=== PATIENT | female | born 1985 | race Caucasian/White ===

== ENCOUNTER 2018-11-24 21:08 | Outpatient (CLI) | payer MEDICAID ==
[~2018-11-24] VITALS: Ht 157.5 cm; Wt 66.6 kg
[2018-11-24 21:05] VITALS: Ht 157.5 cm; Wt 66.6 kg
[~2018-11-24 21:08] MED LIST: PREN1TAB62 PO
[2018-11-24 21:25] VITALS: BP 109/69; PULSE 98; RESP 17
[2018-11-24] MEDS ORDERED: ACET500C5 PO (21:42)
[2018-11-25] MEDS ORDERED: ACETAMINOPHEN 325 MG TAB PO ONE
--- NOTE | 2018-11-25 00:27 | PN ---
Triage Information Date/Time Reason for visit: fever, sore throat and ear pain Weeks of Gestation 20 weeks /Para Diabetes: none Hypertention: none Objective Vital Signs Date Temp Pulse Resp B/P (MAP) Pulse Ox O2 O2 Flow FiO2 Time Delivery Rate 11/24/18 101.4 23:46 11/24/18 98 17 109/69 Room Air 21:25 (82) Heart Rate: 150's Contractions: None Results/Medications Result Diagram: 11/24/18221611/24/182216 Results 24 hrs Laboratory Tests Test 11/24/18 21:15 11/24/18 22:17 Urine Color YELLOW Urine Clarity CLEAR Urine pH 7.0 Urine Specific [place] 1.011 Urine Ketones NEGATIVE Urine Nitrite NEGATIVE Urine Bilirubin NEGATIVE Urine Urobilinogen NEGATIVE Urine Leukocyte Esterase NEGATIVE Urine Hemoglobin NEGATIVE Urine Glucose 1+ H Urine Total Protein NEGATIVE White Blood Count 7.1 Red Blood Count 3.67 L Hemoglobin 12.4 Hematocrit 35.5 L Mean Corpuscular Volume 96.7 Mean Corpuscular Hemoglobin 33.8 H Mean Corpuscular Hemoglobin Concent 34.9 Red Cell Distribution Width 12.5 Platelet Count 222 Mean Platelet Volume 9.4 Immature Granulocytes % 0.400 Neutrophils % 84.3 H Lymphocytes % 8.0 L Monocytes % 6.0 Eosinophils % 1.0 Basophils % 0.3 Nucleated Red Blood Cells % 0.0 Immature Granulocytes # 0.030 Neutrophils # 6.0 Lymphocytes # 0.6 L Monocytes # 0.4 Eosinophils # 0.1 Basophils # 0.0 Nucleated Red Blood Cells # 0.0 Sodium Level 140 Potassium Level 3.8 Chloride Level 103 Carbon Dioxide Level 25 Anion Gap 12 Blood Urea Nitrogen 7 Creatinine 0.47 Est Glomerular Filtrat Rate mL/min > 60 Glucose Level 92 Calcium Level 9.5 Total Bilirubin 0.3 Direct Bilirubin 0.00 Indirect Bilirubin 0.3 Aspartate Amino Transf (AST/SGOT) 25 Alanine Aminotransferase (ALT/SGPT) 23 Alkaline Phosphatase 60 Total Protein 7.2 Albumin 4.0 Globulin 3.20 Albumin/Globulin Ratio 1.25 Disposition: Discharge Assessment/Plan upper respiratory infection Amoxicillin 500 mg PO TID x 10 days PAULINA ROE MD Nov 25, 2018 00:27
--- NOTE | 2018-11-25 00:43 | TRIAGE ---
OB Triage Datetime Report Generated by CPN: 11/25/2018 00:42 Datetime: 11/25/2018 00:17 Stage of : OB Triage Temperature Route: Oral Labor Evaluation Frequency: none Monitor Mode: External Datetime: 11/25/2018 00:00 Labor Evaluation Frequency: none Monitor Mode: External Datetime: 11/24/2018 23:28 Stage of : OB Triage Temperature Route: Oral Datetime: 11/24/2018 23:00 Labor Evaluation Frequency: none Monitor Mode: External Datetime: 11/24/2018 22:38 Contraction Comments: no contractions palpated Datetime: 11/24/2018 22:37 Pain Assessment Pain Scale: 0 Pain Presence: None/Denies Pain Type: N/A Datetime: 11/24/2018 22:03 Labor Evaluation Frequency: none Monitor Mode: External Datetime: 11/24/2018 21:30 Heart Rate Monitor Mode: Doppler Comments: heart beat ranges from 164bpm-175bpm. Datetime: 11/24/2018 21:25 Stage of : OB Triage Assessment Type: Triage Maternal Assessment Level of Consciousness: Fully Conscious DTR's/Clonus: DTRs 2+; No Clonus Headache: Denies Blurred Vision: No Respiratory Effort: Unlabored; Regular Rhythm; Equal Expansion Breath Sounds, Left: Clear and Equal Breath Sounds, Right: Clear and Equal Nausea/Vomiting: Denies RUQ Epigastric Pain: Denies Lower Extremities Edema: None Degree: None Upper Extremities Edema: None Degree: None Facial Edema: None Temperature Route: Oral Fall Risk Assessment History of Falling: (0) No Secondary Diagnosis: (0) No Ambulatory Aid: (0) Bedrest/Nurse Assist IV Therapy: (0) No Gait: (0) Normal/Bedrest/Immobile Mental Status: (0) Oriented to Own Ability Fall Score: 0 Fall Risk Score Definition: No Risk: No action required Comments: Patient states she feels active movement. Pain Assessment Pain Scale: 4 Pain Presence: Intermittent Pain Type: Cramping Pain Location: Abdomen Pain Relief Measures: Comfort Measures Datetime: 11/24/2018 21:24 Monitor Mode: External Resting Tone [place]: Relaxed Contraction Comments: No contractions palpted Datetime: 11/24/2018 21:05 Time of Arrival: 11/24/2018 21:05 EGA: 20.1 Arrived By: Ambulatory Arrived From: Home Chief Complaint: Fever 104F at home, sore throat, abdominal cramping Movement: Present Contractions: Denies/Absent Rupture of Membranes: Denies Vaginal Bleeding: None Vaginal Discharge: Denies Recent Sexual Intercouse: Denies Abdominal Trauma: Not Applicable Patient Complaints: Cramping; Fever Time Provider Notified: 11/24/2018 22:03 Provider Notified: Dr. Moses Initial Plan: Doppler, TOCO, Vital signs
== END 2018-11-25 00:33 | disposition home or self-care (01) ==
LOC: OBT 21:08 → L-D 21:09 → OBT 11-25 00:33
PROVIDERS: ATTEND Obstetrics & Gynecology
DX: O98.512 Other viral diseases complicating pregnancy, second trimester (principal); Z3A.20 20 weeks gestation of pregnancy; J06.9 Acute upper respiratory infection, unspecified
CPT/HCPCS: 76815; 76817; 80053; 81003; 85025; 87086; Z7500; Z7610; G0463

== ENCOUNTER 2019-04-07 04:50 | Inpatient (IN) | payer MEDICAID ==
[~2019-04-07] VITALS: Ht 157.5 cm; Wt 76.2 kg
[~2019-04-07 04:50] MED LIST changes: +ACET500C5 PO
[2019-04-07 05:30] VITALS: BP 115/82; PULSE 73; RESP 18
[2019-04-07] MEDS ORDERED: CARBOPROST 250 MCG INJ IM PRN ×2 (05:30→17:00)
[2019-04-07] MEDS ORDERED: OXYTOCIN 30 UNITS/LR 500 ML IV PRN ×2 (05:30→17:00)
[2019-04-07] MEDS ORDERED: METHYLERGONOVINE 0.2 MG INJ IM PRN ×2 (05:30→17:00)
[2019-04-07] MEDS ORDERED: CEFAZOLIN 2 GM/50 ML (PMX) 50 ML IVPB SCH (05:30)
[2019-04-07] MEDS ORDERED: MISOPROSTOL 200 MCG TAB PR PRN ×2 (05:30→17:00)
[2019-04-07] MEDS: LACTATED RINGER'S 1,000 ML IV SCH ×3 (05:44→21:12)
[2019-04-07 05:53] VITALS: Ht 157.5 cm; Wt 76.2 kg
--- NOTE | 2019-04-07 07:12 | PREAC ---
Date/Time of Note Date/Time of Note DATE: 04/07/19 TIME: 07:11 Anesthesia Eval and Record Evaluation Time Pre-Procedure Interview DATE: 04/07/19 TIME: 07:11 Age 33 Sex female NPO: 8 hrs Preoperative diagnosis previous c/s Planned procedure repeat c/s Past Medical History Past Medical History: Includes GI: Obesity Surgery & Anesthesia Issues No known issue Meds Anticoagulation: No Beta Tamar within 24 hr: No Reason Beta Tamar not given: Pt. not on B-Tamar Reported Medications Acetaminophen* (Tylophen*) 500 Mg Capsule, 1000 MG PO Q6H PRN for FEVER, TAB 11/24/18 Vit-Iron Fumarate-FA ( Vitamin Tablet) 1 Each Tablet, 1 TAB PO DAILY, TAB 09/20/14 Current Medications Lactated Ringer's 1,000 ml @ 125 mls/hr Q8H IV Last administered on 04/07/19at 05:44; Admin Dose 125 MLS/HR; Start 04/07/19 at 05:12 Cefazolin Sodium/ Dextrose 50 ml @ 100 mls/hr ONCE IVPB ; Start 04/07/19 at 05:30 Oxytocin/Lactated Ringer's 500 ml @ 125 mls/hr POST IV ; Start 04/07/19 at 05:30 Oxytocin/Lactated Ringer's 500 ml @ 0 mls/hr ONCE PRN IV .VAGINAL BLEEDING; Start 04/07/19 at 05:30 Methylergonovine Maleate (Methergine) 0.2 mg ONCE PRN IM .VAGINAL BLEEDING; Start 04/07/19 at 05:30 Carboprost Tromethamine (Hemabate) 250 mcg ONCE PRN IM .VAGINAL BLEEDING; Start 04/07/19 at 05:30 Misoprostol (Cytotec) 1,000 mcg ONCE PRN [place] .VAGINAL BLEEDING; Start 04/07/19 at 05:30 Meds reviewed: Yes Allergies Coded Allergies: No Known Allergy (Unverified , 11/24/18) Allergies Reviewed: Yes Labs/Studies Labs Reviewed: Reviewed by anesthesiologist Result Diagram: 04/07/19 0520 Laboratory Tests 04/07/19 05:20 test: Positive Pre-procedure Exam Last vitals Vital Signs Date Temp Pulse Resp B/P (MAP) Pulse Ox O2 O2 Flow FiO2 Time Delivery Rate 04/07/19 98.2 73 18 115/82 Room Air 05:30 (93) Airway: Adequate mouth opening, Adequate thyromental dist Mallampati: Mallampati II Teeth: Normal Lung: Normal Heart: Normal ASA Physical Status ASA physical status: 2 Emergency: None Planned Anesthetic Neuraxial: Spinal Planned Pain Management Sub-arachniod narcotics Pre-operative Attestations Prior to commencing anesthesia and surgery, the patient was re-evaluated, there was verification of: *The patient's identity *The results of appropriate recent lab work and preoperative vital signs *The above evaluation not changing prior to induction *Anesthetic plan, risk benefits, alternative and complications discussed with patient/family; questions answered; patient/family understands, accepts and wishes to proceed. TROY LAUREN Apr 07, 2019 07:12
[2019-04-07] MEDS ORDERED: FENTAnyl 50 MCG/ML VIAL IV PRN ×3 (07:30)
[2019-04-07] MEDS ORDERED: ONDANSETRON 4 MG INJ IV PRN ×2 (07:30)
[2019-04-07] MEDS ORDERED: DIPHENHYDRAMINE 50 MG INJ IV PRN ×2 (07:30)
[2019-04-07] MEDS ORDERED: METOCLOPRAMIDE 10 MG INJ IV PRN (07:30)
[2019-04-07] MEDS ORDERED: HYDROmorphONE 1 MG/5 ML IV SYRINGE IV PRN ×3 (07:30)
[2019-04-07] MEDS ORDERED: NALOXONE (0.4 MG/ML) INJ IV PRN ×2 (07:30→17:00)
[2019-04-07] MEDS ORDERED: KETOROLAC 30 MG INJ IV PRN ×2 (07:30)
[2019-04-07] MEDS ORDERED: HYDROmorphONE 0.5 MG/0.5 ML SYG IV PRN ×2 (07:30)
[2019-04-07] MEDS ORDERED: ALBUTEROL 0.083% (NEB) 2.5 MG/3 ML AMP HHN PRN (07:30)
[2019-04-07] MEDS ORDERED: morphine SULFATE/PF (10 MG/10 ML) INJ ONE (08:33)
[2019-04-07] MEDS ORDERED: PHENYLephrine (100 MCG/ML) 10ML SYG ONE (08:33)
[2019-04-07] MEDS ORDERED: OXYTOCIN 30 UNITS/LR 500 ML BAG IV ONE (08:33)
[2019-04-07] MEDS ORDERED: EPHEDrine 25 MG/5 ML SYG ONE (08:33)
--- NOTE | 2019-04-07 08:48 | HP ---
Date/Time of Note Date/Time of Note DATE: 04/07/19 TIME: 08:45 OB - History Hx of Present Free Text/Dictation 33 years old -0-0-3 with previous delivery at 39 oh weeks desires repeat delivery. She declined TOLAC. She states good movement. She denies nausea, vomiting, shortness of breath, chest pain, headache, visual changes, vaginal bleeding or LOF. Chief Complaint: Scheduled for repeat delivery Estimated Due Date: Apr 14, 2019 : 4 Para: 3 Spontaneous : 0 Therapeutic : 0 Care: Good Care Ultrasounds: Normal mid trimester US Obstetrical Complications: None Medical Complications: None Past Family/Social History * Past Medical, Surgical, Family and Obstetric Histories reviewed from chart. Blood Type: B+ Rubella: immune RPR/VDRL: Negative GBS Status: Negative HBsAG: Negative OB Admission Exam Vital Signs Vital Signs Vital Signs Date Temp Pulse Resp B/P (MAP) Pulse Ox O2 O2 Flow FiO2 Time Delivery Rate 04/07/19 98.2 73 18 115/82 Room Air 05:30 (93) Physical Exam HEENT: WNL Heart: Rhythm Normal Lungs: Clear Abdomen: WNL Extremities: Normal Membranes: Intact Heart Rate: 140's Accelerations: Accelerations Present Decelerations: No Decelerations Varibility: Moderate Contractions on Admission: None Last 72 hours Lab Results CBC & BMP 04/07/19 05:20 OB Assessment/Plan Other plan: 33 years old 4 para 3-0-0-3 with single intrauterine at 39 weeks with previous delivery desires repeat delivery. She declined TOLAC -FHR: Category I -Continuous EFM, toco -CBC, blood type and screen -Please see the orders -B+/Rubella: Immune -GBS: Negative The risk of delivery including but not limited to bleeding, infection, injury to other organs (bowel, bladder, ureter, vessels, nerves), injury to fetus, blood transfusion, blood transfusion related infection, risk of anesthesia, adhesion, needs for future , removal of uterus or any other indicated surgery was discussed with the patient and her family. She expressed understanding. All of her questions were answered. She signed the informed consent. PHYSICIAN'S VERIFICATION OF INFORMED CONSENT The patient and her were counseled regarding the procedure, its indications, risks, potential complications and alternatives and any questions were answered. Consent was obtained. PLANNED PROCEDURE/TREATMENT: delivery with possible using vacuum/forceps and any other indicated surgery PHYSICIAN'S VERIFICATION OF INFORMED CONSENT FOR BLOOD TRANSFUSION: There is a reasonable possibility that blood transfusion will be necessary as a result of the patient's procedure. I have discussed the following with the patient/patient's legal liability claims representative: An explanation of the benefits and risks of the transfusion of blood or blood products and the possible alternatives. All questions have been answered to the patient's satisfaction. INFORMED CONSENT:The patient has been informed of: The nature of the proposed care, treatment, services, medications, interventions or procedures. Potential benefits, risks or side effects, including potential problems related to recuperation. The likelihood of achieving care treatment and service goals. Reasonable alternatives to the proposed care, treatment and service. The relevant risks, benefits and side effects related to alternatives, including the possible results of not receiving care, treatment and services. When indicated, any limitations on the confidentiality of information learned from or about the patient. If appropriate, the risks, benefits and alternatives of the drugs to be used for sedation/analgesia including moderate sedation. If appropriate, patient has been provided information on the risks, benefits and alternatives to the transfusion of blood and/or blood products. If appropriate, patient has been provided information regarding the [place] Blood Act. JANELLE BRADY Apr 07, 2019 08:48
[2019-04-07] MEDS ORDERED: ONDANSETRON 4 MG INJ ONE (08:49)
[2019-04-07] MEDS ORDERED: FENTAnyl 50 MCG/ML VIAL ONE (09:33)
[2019-04-07] MEDS: OXYTOCIN 30 UNITS/LR 500 ML IV SCH ×2 (10:01→14:07)
--- NOTE | 2019-04-07 10:20 | PAC ---
Date/Time of Note Date/Time of Note DATE: 04/07/19 TIME: 10:20 Post-Anesthesia Notes Post-Anesthesia Note Last documented vital signs Vital Signs Date Temp Pulse Resp B/P (MAP) Pulse Ox O2 O2 Flow FiO2 Time Delivery Rate 04/07/19 98.2 73 18 115/82 Room Air 05:30 (93) Activity: WNL Respiratory function: WNL Cardiovascular function: WNL Mental status: Baseline Pain reasonably controlled: Yes Hydration appropriate: Yes Nausea/Vomiting absent: Yes TROY LAUREN Apr 07, 2019 10:20
--- NOTE | 2019-04-07 12:55 | OPR ---
Operative Report Planned Procedure Procedure date Apr 07, 2019 Procedure(s) Repeat low transverse delivery Performed by see signature line [employer] Instructor: PAULINA ROE MD Anesthesiologist: TROY LAUREN Pre-procedure diagnosis 33 years old 4 para 3-0-0-3 with single intrauterine at 39 weeks with previous delivery desires repeat delivery. She declined TOLAC [id number] Anesthesia Type: Lzbll9w spinal Post-Procedure Post-procedure diagnosis - Single intrauterine at 39 weeks - Previous delivery desires repeat delivery - 4 cm window on lower uterine segment Findings 1. Normal uterus except for 4 cm window on lower uterine segment. Normal fallopian tubes and ovaries 2. Viable female in cephalic presentation. 8 at one minute and 9 3700 g, 8 pounds 3 ounces in 5 minutes. Weight: 3700 g, 8 pounds 3 ounces. Time of delivery: 09:05 3. Placenta with three vessel cord 4. Amniotic fluid - Clear Estimated Blood Loss: 600 - 700 mls Specimen(s) none Grafts/Implant(s) none Complication(s) none Pt Condition post procedure: stable Disposition: PACU Procedure Description INDICATION AND HISTORY: A 33 years old 4 para 3-0-0-3 with single intrauterine at 39 w eeks with previous delivery desires repeat delivery. She declined TOLAC. The risk of delivery including but not limited to bleeding, infection, injury to other organs (bowel, bladder, ureter, vessels, nerves), injury to fetus, blood transfusion, blood transfusion related infection, risk of anesthesia, adhesion, needs for future , removal of uterus or any other indicated surgery was discussed with the patient and her family. She expressed understanding. All of her questions were answered. She signed the informed consent. DESCRIPTION OF OPERATION: The patient was taken to the operating room, where she was identified and the procedure was verified. The patient received two gram of Ancef 30 minutes prior to surgery. Spinal anesthesia was placed anesthesiologist. The patient placed in the dorsal supine position with a left tilt. The heart rate was 130 bpm. The patient was then prepped and draped in the normal sterile fashion. A Pfannenstiel skin incision was made and carried down to the fascia with knife. The fascia was incised in the midline and the fascial incision was carried later ally with Warner scissors. The superior portion of the fascial incision was then grasped with Maury clamps and tented up and dissected off the underlying rectus muscle with sharp dissection. The lower portion of the fascial incision was then made in a similar fashion. The rectus muscle was and the peritoneum was entered. The peritoneal incision was then stretched and a bladder blade was inserted. Then, an incision was made in the lower uterine segment above the 4 cm window in a transverse fashion with a knife and extended bluntly. The was delivered atraumatically in cephalic presentation with the above findings. The umbilical cord was clamped and cut. The neonatology resuscitation team was present and the baby was handed to them. A cord blood sample was obtained for further evaluation. The placenta and membrane, which appeared normal were Removed. The uterus was exteriorized and cleared of all clot and debris. The uterus was then closed in a two layer fashion with 0- Monocryl. At the time of closure, hemostasis was noted. The gutters were irrigated. The peritoneum was reapproximated with 3-0 Vicryl. The muscle was reapproximated with 3-0 Vicryl. The fascia was approximated with 0-Vicryl in a running fashion. The subcutaneous tissue was re approximated with 3-0 vicryl. The skin was closed with 4-0 Monocryl. All instruments, sponges and needle counts were correct x3. The patient tolerated the procedure well. She transferred to the recovery room in stable condition. JANELLE BRADY Apr 07, 2019 12:55
[2019-04-07 15:00] VITALS: BP 115/68; PULSE 79; RESP 18
[2019-04-07 16:00] VITALS: BP 113/69; PULSE 84; RESP 19
[2019-04-07] MEDS ORDERED: OXYTOCIN 30 UNITS/LR 500 ML IV SCH (16:40)
[2019-04-07] MEDS ORDERED: METHYLERGONOVINE 0.2 MG TAB PO PRN (17:00)
[2019-04-07] MEDS ORDERED: MAGNESIUM HYDROXIDE 30ML CUP PO PRN (17:00)
[2019-04-07] MEDS ORDERED: LANOLIN HPA 1 PKT TOP PRN (17:00)
[2019-04-07] MEDS: DEXTROSE 5%-LR 1,000 ML IV SCH (19:36)
[2019-04-07 19:40] VITALS: BP 111/74; PULSE 78; RESP 19
[2019-04-07] MEDS: SENNA/DOCUSATE NA (8.6MG/50MG) TAB PO SCH (21:53)
[2019-04-07 23:40] VITALS: BP 110/65; PULSE 90; RESP 19
[2019-04-08] MEDS: DEXTROSE 5%-LR 1,000 ML IV SCH ×2 (00:40→08:40)
[2019-04-08 03:40] VITALS: BP 104/63; PULSE 85; RESP 18
[2019-04-08] MEDS: LACTATED RINGER'S 1,000 ML IV SCH ×2 (05:37→13:12)
[2019-04-08] MEDS: IBUPROFEN 800 MG TAB PO SCH ×3 (06:00→22:00)
[2019-04-08 07:30] VITALS: BP 106/64; PULSE 67; RESP 18
--- NOTE | 2019-04-08 07:52 | PN ---
Date/Time of Note Date/Time of Note DATE: 04/08/19 TIME: 07:52 OB Subjective Subjective Subjective Subjective: Tolerating regular diet. Greenberg removed ~ 0400. Vaginal bleeding within normal limits. Breast feeding. Hosptial day: 2 Mode of delivery: Objective: Vital signs: 104/63 H/H: 12/36 General: No apparent distress Breast: Normal Fundus: 2 fingerbreadths below the umbilicus Extremities: Nontender to palpation Incision: C/D/I Assessment/plan: 1. day 1 from delivery-routine pp care. incentive spiromter. OB Objective Objective Objective Vital Sign - Last 24 Hours 04/07/19 04/07/19 04/07/19 04/07/19 15:00 16:00 19:40 23:40 Temp 98.4 98.7 98.4 98.0 Pulse 79 84 78 90 Resp 18 B/P (MAP) 115/68 (84) 113/69 (84) 111/74 (86) 110/65 (80) Pulse Ox 100 97 97 O2 Delivery Room Air Room Air Room Air Room Air 04/08/19 03:40 Temp 98.1 Pulse 85 Resp 18 B/P (MAP) 104/63 (77) Pulse Ox 98 O2 Delivery Room Air Intake and Output 04/07/19 04/07/19 04/08/19 1515:00 23:00 07:00 IntakeIntake Total 750 ml 675 ml 500 ml OutputOutput Total 3181 ml 125 ml 1700 ml BalanceBalance -2431 ml 550 ml -1200 ml Laboratory Tests Test 04/07/19 05:20 04/08/19 06:30 Hematocrit 39.7 % 36.4 % Hemoglobin 13.8 g/dl 12.4 g/dl Platelet Count 167 10^3/UL 141 10^3/UL White Blood Count 9.1 10^3/ul 7.4 10^3/ul DEMARIO DANIELS MD Apr 08, 2019 07:52
[2019-04-08] MEDS: SENNA/DOCUSATE NA (8.6MG/50MG) TAB PO SCH ×2 (10:32→20:43)
[2019-04-08] MEDS ORDERED: DIPHTH/TET/ACEL PERTUSS (ADULT) 0.5 ML VIAL IM* ONE (11:00)
[2019-04-08] MEDS ORDERED: HYDROCODONE/APAP (5/325) TAB NGT PRN (11:00)
[2019-04-08 12:08] VITALS: BP 108/65; PULSE 71; RESP 18
[2019-04-08] MEDS: HYDROCODONE/APAP (5/325) TAB GTB SCH ×2 (14:00→22:00)
[2019-04-08 16:17] VITALS: BP 107/68; PULSE 65; RESP 18
[2019-04-08 20:00] VITALS: BP 105/71; PULSE 71; RESP 19
[2019-04-09 03:35] VITALS: BP 108/69; RESP 18
[2019-04-09] MEDS: HYDROCODONE/APAP (5/325) TAB GTB SCH ×2 (05:28→14:00)
[2019-04-09] MEDS: IBUPROFEN 800 MG TAB PO SCH ×3 (05:28→15:04)
[2019-04-09 07:30] VITALS: BP 107/66; PULSE 68; RESP 18
[2019-04-09] MEDS: SENNA/DOCUSATE NA (8.6MG/50MG) TAB PO SCH (11:45)
[2019-04-09 16:08] VITALS: BP 111/68; PULSE 77; RESP 18
--- NOTE | 2019-04-09 17:05 | PD.PPDC ---
[employer]OFESSIONAL [employer]LEY[employer]ALL [employer]ER Discharge Instruction Diagnosis [id number] Final Diagnosis: Ktnul8e S?P repeat c/s Condition [id number] Patient Condition: Mlyue4p Stable Diet [place]0Nk Diet: Aghod7o Resume Regular Diet Activity/Restrictions [id number] Activity: Ezbcd5x May Shower Xmpiw5Ny Restrictions: Gglaq9f No Lifting No Sexual Activity Nothing in the Vagina No [place] No Tampons, douche Wound/Drain Care Instructions [id number] Wound/Drain Care Instructions: Vupvt0o Wash with soap and water Keep clean and dry Follow-up Follow-up with Physician: 2, Week/Weeks Return to clinic for [id number] PHYSICIAN OFFICE CLIN ASST Instructions: Nmece1g Fever greater than 101 Chills Worsening abdominal pain Excessive Vaginal Bleeding More than 2 pads per hour Unable to tolerate diet Nwffy9Jh OB Instructions: Jbtgi3v Breast Tenderness Depression Blurried Vision Headache Yebik9Ca Surgical Instructions: Stbiy8f Incisional Drainage Incisional Redness CHELSEA PLAZA MD Apr 09, 2019 17:05
--- NOTE | 2019-04-09 17:09 | DS ---
Date/Time of Note Date/Time of Note DATE: 04/09/19 TIME: 17:07 Obstetrical Discharge Record Final Diagnosis Final Diagnosis: Term delivered Section Section: Repeat Complications Augmentation: No Induction: No Rupture of Membranes: No Condition on Discharge Physical Assessment Last Vitals: vss afebrile Voiding: Yes Bowel Movement: No Breast: Soft, non-tender Fundus: Firm Abdomen and Incision: abdomen soft wound dry Episiotomy: n/a Calf Tenderness: No Patient Condition: Stable CHELSEA PLAZA MD Apr 09, 2019 17:09
[2019-04-10] MEDS ORDERED: MEASLES,MUMPS,RUBELLA VACCINE INJ SC* ONE (09:00)
[2019-04-10] MEDS ORDERED: DIPHTH/TET/ACEL PERTUSS (ADULT) 0.5 ML VIAL IM* ONE (09:00)
--- NOTE | 2019-04-10 18:38 | DELSUM ---
Delivery Summary A-C Datetime Report Generated by CPN: 04/10/2019 18:37 DELIVERY PERSONNEL Waiter/Waitress Cocktail Lounge: Yobe, Reinaldo MATERNAL INFORMATION Delivery Anesthesia: Spinal Medications in Delivery: see anesthesia records Delivery QBL (ml): 600 Placenta Cultured: No Maternal Complications: None LABOR SUMMARY EDC: 04/14/2019 00:00 No. Babies in Womb: 1 Attempted: No Labor Anesthesia: None LABOR INFORMATION Group B Beta Strep: Negative Antibiotics # of Doses: 1 Antibiotics Time of Last Dose: 04/07/2019 08:57 Steroids Given: None Reason Steroids Not Administered: Not Applicable MEMBRANES Membranes Rupture Method: Artificial Rupture of Membranes: 04/07/2019 09:04 Length of Rupture (hr): 0.02 Amniotic Fluid Color: Clear Amniotic Fluid Amount: Moderate Amniotic Fluid Odor: None STAGES OF LABOR Stage 3 hr: 0 Stage 3 min: 2 CSECTION DELIVERY Primary Indication: Repeat Elective Secondary Indication: N/A CSection Urgency: Elective CSection Incidence: Repeat Labor: No Labor Elective: N/A CSection Incision: Lower Uterine Transverse BABY A INFORMATION Infant Delivery Date/Time: 04/07/2019 09:05 Method of Delivery: Born in Route : No : N/A Forceps: N/A Vacuum Extraction: N/A Shoulder Dystocia : No SHOULDER DYSTOCIA BABY A Infant Delivery Date/Time: 04/07/2019 09:05 PRESENTATION/POSITION BABY A Presentation: Cephalic Cephalic Presentation: N/A Breech Presentation: N/A PLACENTA INFORMATION BABY A Placenta Delivery Time : 04/07/2019 09:07 Placenta Method of Delivery: Manual Removal Placenta Status: Delivered SCORES BABY A Heart Rate 1 min: >100 bpm Resp Effort 1 min: Good Cry Reflex Irritability 1 min: Cough/Sneeze/Pulls Away Muscle Tone 1 min: Active Motion Color 1 min: Blue/Pale Resuscitation Effort 1 min: Tactile Stimulation SCORE 1 MIN: 8 Heart Rate 5 min: >100 bpm Resp Effort 5 min: Good Cry Reflex Irritability 5 min: Cough/Sneeze/Pulls Away Muscle Tone 5 min: Active Motion Color 5 min: Body [place], Extremit Blue Resuscitation Effort 5 min: Tactile Stimulation SCORE 5 MIN: 9 INFORMATION BABY A Gestational Age at Delivery: 39.0 Gestational Status: Full Term- 39- 40.6 Weeks Outcome : Liveborn, with signs of life Condition : Stable Infant Sex: Female IDENTIFICATION/MEDS BABY A ID Band Number: [id number] ID Band Location: Right Leg; Left Arm Sensor Applied: Yes Sensor Number: [id number] Sensor Location : Cord Clamp Vitamin K Given : Not Given Erythromycin Given: Not Given WEIGHT/LENGTH BABY A Birthweight (gm): 3700 Weight (lb): 8 Weight (oz): 3 Length (in): 20.50 Infant Length (cm): 52.07 CORD INFORMATION BABY A No. Cord Vessels: 3 Nuchal Cord : N/A Cord Blood Taken: Yes Infant Suction: Mouth; Nose ASSESSMENT BABY A Complications: None Physical Findings at Delivery: Within Normal Limits Respirations: Appears Normal [place] Cutter/ALS Called : No Care By: RN _ RT Transferred To: Remains with Mother
--- NOTE | 2019-04-22 19:45 | CONS ---
Consultation Date/Type/Reason Admit Date/Time Apr 07, 2019 at 04:50 Initial Consult Date 04/08/19 Type of Consult anesthesia Reason for Consultation duramorph f/u Date/Time of Note DATE: 04/22/19 TIME: 19:44 24 HR Interval Summary Free Text/Dictation Pt seen and examined on 04/08/19 was POD#1 s/p repeat c/s. Pt received spinal duramorph for post-op pain control. She stated she had no pain. TROY LAUREN Apr 22, 2019 19:45
== END 2019-04-09 18:37 | disposition home or self-care (01) | DRG 788 ==
LOC: L-D 04:50 → PP1 14:49
PROVIDERS: ADMIT Obstetrics & Gynecology; ATTEND Obstetrics & Gynecology
PROC: 10D00Z1 Extraction of Products of Conception, Low, Open Approach (ICD-10-PCS; principal; 2019-04-07 07:30)
DX: O34.211 Maternal care for low transverse scar from previous cesarean delivery (principal); O94 Sequelae of complication of pregnancy, childbirth, and the puerperium; O99.214 Obesity complicating childbirth; E66.9 Obesity, unspecified; Z3A.39 39 weeks gestation of pregnancy; Z37.0 Single live birth
CPT/HCPCS: 85025; 85610; 85730; 86592; 86850; 86900; 86901; 87340; 99464; J0690; J2210; J2274; J2370; J2405; J2590; J3010; J7120; J7121